=== PATIENT | female | born 1980 ===

== ENCOUNTER 2017-04-19 19:51 | Emergency (ER) | payer OTHER ==
[2017-04-19 20:33] VITALS: RESP 18
[2017-04-19] MEDS ORDERED: Sodium Chloride 0.9% 1,000 ML IV ONE (21:25)
[2017-04-19 21:26] LABS: RBC URINE 9 /hpf (0-3); URINE BACTERIA RARE (<OCC); URINE BILIRUBIN NEGATIVE (NEGATIVE); URINE BLOOD 2+ (NEGATIVE); URINE COLOR Yellow (YELLOW); URINE GLUCOSE (UA) NORMAL (Normal); URINE KETONE NEGATIVE (NEGATIVE); URINE LEUKOCYTE ESTERASE NEG Leu/uL (Negative); URINE PROTEIN NEGATIVE (NEGATIVE); URINE UROBILINOGEN NORMAL mg/dL (0.2-1.0); WBC URINE < 1 /hpf (0-5)
[2017-04-19 21:40] LABS: EOS # 0.1 K/uL (0.0-0.7); LYMPH # 2.4 K/uL (1.0-4.3); MONO # 0.7 K/uL (0.0-0.8)
[2017-04-19 21:49] LABS: CHLORIDE 103 mmol/L (98-107); POTASSIUM 3.3 mmol/L (3.6-5.2); SODIUM 136 mmol/L (132-148)
[2017-04-19 21:51] LABS: BILIRUBIN,TOTAL 0.4 mg/dL (0.2-1.3); CARBON DIOXIDE 21 mmol/L (22-30); GFR AFRICAN-AMERICAN > 60
[2017-04-19 21:52] LABS: ALB/GLOB RATIO 1.2 (1.0-2.1); ALKALINE PHOSPHATASE 64 U/L (38-126); ALT/SGPT 30 U/L (9-52); AST/SGOT 29 U/L (14-36); BASO % 0.5 % (0.0-2.0); BLOOD UREA NITROGEN 10 mg/dL (7-17); CALCIUM 8.8 mg/dl (8.6-10.4); EOS % 1.9 % (0.0-4.0); GLUCOSE,RANDOM 79 mg/dL (65-105); LYMPH % 30.5 % (20.0-40.0); MEAN CORPUSCULAR HEMOGLOBIN 17.7 pg (27.0-31.0); MONO % 8.4 % (0.0-10.0); NRBC % 0.1 % (0.0-2.0); RED CELL DISTRIBUTION WIDTH 19.2 % (11.5-14.5); TOTAL PROTEIN 7.8 g/dL (6.3-8.3); WHITE BLOOD COUNT 7.9 K/uL (4.8-10.8)
[2017-04-19 21:53] LABS: MEAN CELL VOLUME 59.2 fL (81.0-99.0)
--- NOTE | 2017-04-19 23:22 | C.PDOC ---
Time Seen by Provider: 04/19/17 21:08 Chief Complaint (Nursing): Female Genitourinary History Per: Patient Onset/Duration Of Symptoms: Hrs (today) Current Symptoms Are (Timing): Still Present Severity: Mild Location Of Pain/Discomfort: Suprapubic Quality Of Discomfort: Unable To Describe, "Pain" Exacerbating Factors: None Alleviating Factors: None Additional History Per: Prior Records Abnormal Vaginal Bleeding: Yes Past Medical History Reviewed: Historical Data, Nursing Documentation, Vital Signs Vital Signs: Last Vital Signs Temp 98.5 F 04/19/17 20:30 Pulse 69 04/19/17 20:30 Resp 18 04/19/17 20:30 BP 146/87 04/19/17 20:30 Pulse Ox 100 04/19/17 20:30 - Medical History PMH: No Chronic Diseases Surgical History: Family History: States: Unknown Family Hx - Social History Hx Tobacco Use: No Hx Alcohol Use: No Hx Substance Use: No - Immunization History Hx Tetanus Toxoid Vaccination: No Hx Influenza Vaccination: No Hx Pneumococcal Vaccination: No Review Of Systems Except As Marked, All Systems Reviewed And Found Negative. Constitutional: Negative for: Fever, Weakness Cardiovascular: Negative for: Chest Pain, Light Headedness Respiratory: Negative for: Shortness of Breath Gastrointestinal: Negative for: Vomiting Genitourinary: Positive for: Vaginal Bleeding (spotting), Pelvic Pain. Negative for: Dysuria Musculoskeletal: Negative for: Neck Pain, Back Pain Skin: Negative for: Rash Neurological: Negative for: Weakness, Numbness Physical Exam - Physical Exam Appears: Non-toxic, No Acute Distress Skin: Warm, Dry Head: Atraumatic, Normacephalic Eye(s): bilateral: PERRL, EOMI Neck: Normal ROM, Supple Cardiovascular: Rhythm Regular Respiratory: Normal Breath Sounds, No Accessory Muscle Use Gastrointestinal/Abdominal: Soft, Tenderness (mild suprapubic), No Guarding, No Rebound Back: No CVA Tenderness Extremity: Normal ROM Neurological/Psych: Oriented x3, Normal Motor, Normal Sensation ED Course And Treatment - Laboratory Results Result Diagrams: 04/19/17 21:34 04/19/17 21:34 Lab Interpretation: Abnormal Interpretation Of Abnormal: Anemia Urine POC: Positive O2 Sat by Pulse Oximetry: 100 Pulse Ox Interpretation: Normal - CT Scan/US Pelvic US Other Rad Studies (CT/US): Read By Radiologist, Radiology Report Reviewed CT/US Interpretation: Single IUP with cardiac activity and approximatly 7 weeks 3 days. Reassessment Condition: Improved Disposition Counseled Patient/Family Regarding: Studies Performed, Diagnosis, Need For Followup, Rx Given - Disposition Disposition: HOME/ ROUTINE Disposition Time: 23:23 Condition: IMPROVED Additional Instructions: Follow up with your City Planning Aide doctor for further evaluation and treatment. Return to the ER if you develop dizziness, heavy bleeding, worsening of symptoms or if you have any other concerns. Prescriptions: Pnv with Ca,No.72/Iron,Carb/FA [ Plus Iron Tablet] 1 each PO DAILY #90 tablet Instructions: Threatened Miscarriage (ED), Anemia (ED) Forms: [employer] (Welsh) Print Language: OCCITAN - Clinical Impression Clinical Impression: Anemia, Threatened in first trimester
[2017-04-20 00:41] VITALS: BP 123/74; PULSE 75; TEMP 98.3; O2SAT 99
--- NOTE | 2017-04-20 13:07 | US ---
PROCEDURE: OB Pelvic Ultrasound HISTORY: pain/bleeding, r/o ectopic. Pelvic pain/vaginal spotting COMPARISON: None available. FINDINGS: UTERUS: Gestational sac: Single intrauterine gestation. Heart rate: 146 bpm. age (Ultrasound estimated): 7 weeks 4 days +/- 0 weeks 4 days Qi-gestational hemorrhage: None. Date of delivery (Ultrasound estimated) : 12/02/2017 Uterus measures 13.6 x 6 x 6.5 cm. Normal in size and appearance. CERVIX: Long and closed. No cervical abnormality seen. RIGHT OVARY: Measures 3.2 x 1.7 x 2.5 cm. No mass lesion. Normal flow. LEFT OVARY: Measures 3.6 x 3.9 x 2.9 cm. No solid mass. Normal flow. FREE FLUID: None. OTHER FINDINGS: None. IMPRESSION: Intrauterine viable with cardiac activity. Estimated gestational age by ultrasound is 7 weeks 4 days. Estimated date of delivery by ultrasound is 12/02/2017. Preliminary report was submitted by virtual Radiology
== END 2017-04-20 00:37 | disposition home or self-care (01) ==
LOC: C.ER 19:51
DX: O20.0 Threatened abortion (principal); O99.011 Anemia complicating pregnancy, first trimester; Z3A.01 Less than 8 weeks gestation of pregnancy
CPT/HCPCS: 76801; 80053; 81001; 84702; 84703; 85025; 86850; 86900; 96360; 99284; J2792; J7040

== ENCOUNTER 2017-09-07 19:21 | Emergency (ER) | payer OTHER ==
[2017-09-07 19:51] VITALS: BMI 28.4
[2017-09-07] MEDS ORDERED: Dextrose 5%/Lactated Ringer's 1,000 ML IV SCH (20:15)
[2017-09-07 20:39] LABS: SPERM URINE RARE /hpf; SQUAMOUS EPITHIAL 7 /hpf (0-5); URINE BACTERIA RARE (<OCC); URINE BILIRUBIN NEGATIVE (NEGATIVE); URINE BLOOD NEGATIVE (NEGATIVE); URINE CLARITY Hazy (Clear); URINE COLOR Yellow (YELLOW); URINE GLUCOSE (UA) NORMAL (Normal); URINE LEUKOCYTE ESTERASE NEG Leu/uL (Negative); URINE NITRATE NEGATIVE (NEGATIVE); URINE PROTEIN 1+ mg/dL (NEGATIVE)
[2017-09-07 20:51] VITALS: TEMP 99
--- NOTE | 2017-09-07 23:28 | OBHP ---
Datetime: 09/07/2017 19:48 IP Adm Impression: , intrauterine ; No Active Labor IP Chief Complaint Other: Pain on urination IP Admit Plan: Observation/Evaluation; Discharge home Admit Comment, IP Provider: 37 y.o , LMP 02/26/17, STEPHANIE 12/03/17, EGA 27w 4d c/o burning on urin ation x 1 day (onset 09/06/17); (+) urinary frequency, approx every 30 min to 1 hr. Denies odor to uri ne. Last had sexual intercourse 09/03/17. (+) AFM; denies LOF. VB. Also c/o MAXWELL and occasional dizzine ss - onset also 09/06/17. Drinks 2 bottles of water a day. Works with a [employer], five days a w [employer]. Reports today, has not eaten since 1300 hours. care: [facility] - last visit 08/27; next vi sit 09/24. Noted for AMA, prev C/S, anemia P Ob: 2008, C/S, female, 9 1/2 lbs, Breech, [facility]. No complications. 2008, Spont Ab, with D_C; no complications. 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 Denies STIs, abnormal Pap, fibroids or ovarian cysts PMH: denies PSH: D_C; C/S; abdominoplasty NKDA Meds: PNV, iron - each, once a day Soc Hx: denies tobacco, illicit drug or EtOH use. With FOB x 1 year; lives with him and her daught er. Fam Hx: Mother alive 56 y.o. Father alive 59 y.o. - both, no med issues P.E.: as above. WD in NAD. Awake, alert, oriented to time, person and place. Pleasant and cooperat diomedes. Assessment: 37 y.o. P1011, 27w 4d, dysuria and urinary frequency - R/O UTI. FHR appropriate for g estational age. Clinically stable. Plan: 1) IVFs 2) U/A 3) Tylenol 650 mg p.o. x 1 4) Observe Addendum: 2044 hours - patient fell asleep; easily awakened. No headache - U/A: leuk esterase neg Assessment: Uterine irritabilty and frequency may be due to recent sexual activity. Patient advise d to increase p.o. intake of water; and to eat more frequently; small portions. Clinically stable. Plan: 1) discharge home 2) keep scheduled appointments Pelvic Type - PN: Adequate Extremities - PN: Normal Abdomen - PN: Normal Back - PN: Normal Breast - PN: Not Done Lungs - PN: Normal Heart - PN: Normal Thyroid - PN: Not Done Neurologic - PN: Normal HEENT - PN: Normal General - PN: Normal FHR - Baseline A Provider: 135 Contraction Comments Provider: irritability Comments, ACOG Physical Exam: Abdomen: Gravid. Soft. Non tender in all quadrants. Healed Abdominopla sty scar All other systems reviewed and are negative Gestation - Est Wks by US: 27w 4d EGA AdmitDate IP: 27.4 IP Chief Complaint: Other NICHD Variability Prov Fetus A: Moderate 6-25bpm NICHD Decel Fetus A IP Provider: None Dilatation, Provider: 0 Effacement, Provider: 0 Station, Provider: high Genitourinary Exam: Normal DTRs - PN: Not Done
[2017-09-08 01:51] VITALS: BP 146/83; PULSE 67; RESP 20; O2SAT 95
== END 2017-09-07 21:50 | disposition home or self-care (01) ==
LOC: C.EROB 19:21
DX: O26.92 Pregnancy related conditions, unspecified, second trimester (principal); R30.0 Dysuria; Z3A.27 27 weeks gestation of pregnancy
CPT/HCPCS: 81001; 99283; J7120

== ENCOUNTER 2017-11-07 12:18 | Emergency (ER) | payer OTHER ==
[2017-11-07 13:13] VITALS: BMI 30.7
--- NOTE | 2017-11-07 14:58 | OBHP ---
Datetime: 11/07/2017 14:48 IP Adm Impression: Term, intrauterine ; , intrauterine IP Admit Plan: Discharge home Admit Comment, IP Provider: 37 y.o , LMP 02/26/17, STEPHANIE 12/03/17, EGA @ 36.2 wks GA arrived wth an Rx from clinic dated 10/29 for nst/bpp. pt states she is unsure why she was sent, dnei any lof, vb, ctx, + normal movements. Pt landen any hx of htn or diabtes. Clinic wsa then called to see fo r indication, and as per resdient Dr Patel said for advanced maternal age. P Ob: 2009, C/S, female, 9 1/2 lbs, Breech, [facility]. No complications. 2008, Spont Ab, with D_C; no complications. 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 Denies STIs, abnormal Pap, fibroids or ovarian cysts PMH: denies PSH: D_C; C/S; abdominoplasty NKDA Meds: PNV, iron - each, once a day Soc Hx: denies tobacco, illicit drug or EtOH use. With FOB x 1 year; lives with him and her daught er. Fam Hx: Mother alive 56 y.o. Father alive 59 y.o. - both, no med issues 37y/o P1 @ 36.2 wks GA with matneral reaussring and well being -nst reactive, bpp apperas 03/12 -dc home -has follo wup on Saturday 11/11 -labor precuations given - kick counts Pelvic Type - PN: Adequate Extremities - PN: Normal Abdomen - PN: Normal Back - PN: Normal Breast - PN: Normal Lungs - PN: Normal Heart - PN: Normal Thyroid - PN: Not Done Neurologic - PN: Normal HEENT - PN: Normal General - PN: Normal Presentation-Admit: Vertex FHR - Baseline A Provider: 120 Membranes, Provider: Intact Contraction Comments Provider: irritalbty Gestation - Est Wks by US: 36.2 EGA AdmitDate IP: 36.2 Vital Signs Provider: Reviewed IP Chief Complaint: Other NICHD Variability Prov Fetus A: Moderate 6-25bpm NICHD Accel Fetus A IP Provider: [id number] FHR Category Provider Fetus A: Category I NICHD Decel Fetus A IP Provider: None Genitourinary Exam: Normal DTRs - PN: Normal
--- NOTE | 2017-11-07 15:16 | US ---
PROCEDURE: OB Pelvic Ultrasound HISTORY: Advanced maternal age LMP: 02/26/2015 COMPARISON: Obstetric ultrasound 04/19/2017 FINDINGS: UTERUS: A single viable intrauterine gestation is identified in cephalic lie with average ultrasonic age of 35 weeks 5 days an cardiac activity of 131 beats per minute. This represents normal interval growth compared prior obstetric ultrasound 04/19/2017 when the gestational is 7 weeks 4 days average ultrasound age. There is no evidence to suggest placental abruption or previa with a well-developed anterior fundal placenta identified. The following mean biometry was obtained: BPD 8.8 cm corresponds to 35 weeks 4 days. HC 31.6 cm correspond to 35 weeks 4 days. AC 31.8 cm corresponds to 35 weeks 5 days. FL 7.0 cm corresponds to 35 weeks 6 days. HC/AC ratio is 1.0 which falls within the normal range. Estimated date of delivery 12/07/2017. Estimated weight 2752 g standard deviation. anatomical survey is quite limited at this stage of gestation but no obvious hydrocephalus evident. There is no hydronephrosis appreciated in the urinary bladder is unremarkable. Left-sided stomach is appreciated 3 vessel umbilical cord is identified. Abdominal umbilical cord insertion is not clearly appreciated due to lie and the spine is not completely imaged for the same reason. No nuchal fold is submitted. Biophysical profile: breathing - 2. body movement - 2. tone - 2. Amniotic fluid - 2. Total biophysical profile score 8/8. CERVIX: Measures 3.8 cm. Long and closed. No cervical abnormality seen. RIGHT OVARY: Not identified. LEFT OVARY: Not identified. FREE FLUID: None. OTHER FINDINGS: None. IMPRESSION: A single viable intrauterine gestation is identified in cephalic lie with an average ultrasonic age of 35 weeks 5 days representing normal growth compared prior obstetric ultrasound exam dated 04/09/2017. Biophysical profile score 8/8. Limited anatomical survey. Please see discussion above.
[2017-11-07 19:12] VITALS: BP 128/78; PULSE 83
== END 2017-11-07 15:10 | disposition home or self-care (01) ==
LOC: C.EROB 12:18
DX: Z36.89 Encounter for other specified antenatal screening (principal)

== ENCOUNTER 2017-11-25 13:37 | Inpatient (IN) | payer MEDICAID, OTHER ==
[2017-11-25 14:37] LABS: BASO % 0.4 % (0.0-2.0); EOS # 0.3 K/uL (0.0-0.7); EOS % 3.4 % (0.0-4.0); LYMPH # 1.8 K/uL (1.0-4.3); LYMPH % 22.7 % (20.0-40.0); MEAN CORPUSCULAR HEMOGLOBIN 26.5 pg (27.0-31.0); MEAN CORPUSCULAR HGB CONC 33.4 g/dL (33.0-37.0); MEAN PLATELET VOLUME 10.7 fL (7.2-11.7); MONO # 0.6 K/uL (0.0-0.8); MONO % 8.1 % (0.0-10.0); NEUT # 5.2 K/uL (1.8-7.0); NEUT % 65.4 % (50.0-75.0); NRBC % 0.1 % (0.0-2.0); RBC 4.38 Mil/uL (3.80-5.20); RED CELL DISTRIBUTION WIDTH 14.2 % (11.5-14.5)
[2017-11-25 14:39] LABS: HEMOGLOBIN 11.6 g/dL (11.0-16.0)
[2017-11-25 14:40] LABS: MEAN CELL VOLUME 79.2 fL (81.0-99.0)
[2017-11-25 14:42] LABS: SQUAMOUS EPITHIAL 12 /hpf (0-5); URINE BACTERIA RARE (<OCC); URINE BILIRUBIN NEGATIVE (NEGATIVE); URINE BLOOD NEGATIVE (NEGATIVE); URINE CLARITY Hazy (Clear); URINE COLOR Straw (YELLOW); URINE GLUCOSE (UA) NORMAL (Normal); URINE LEUKOCYTE ESTERASE NEG Leu/uL (Negative); URINE PROTEIN NEGATIVE (NEGATIVE); URINE UROBILINOGEN NORMAL mg/dL (0.2-1.0)
[2017-11-25 14:47] LABS: ALB/GLOB RATIO 0.9 (1.0-2.1); ALBUMIN 3.7 g/dL (3.5-5.0); ALT/SGPT 19 U/L (9-52); AST/SGOT 38 U/L (14-36); BLOOD UREA NITROGEN 13 mg/dL (7-17); CALCIUM 9.1 mg/dl (8.6-10.4); GFR AFRICAN-AMERICAN > 60; GFR NON-AFRICAN AMERICAN > 60; URIC ACID 4.8 mg/dL (2.2-7.5)
[2017-11-25 14:56] LABS: PROTHROMBIN TIME 11.1 SECONDS (9.7-12.2)
[2017-11-25] MEDS ORDERED: Sodium Citrate/Citric Acid 15 ml Sol PO ONE (15:52)
[2017-11-25] MEDS ORDERED: cefOXitin IV 2 gm in Saline 2 GM in Sodium Chloride 0.9% 50 ML IV STA (15:53)
[2017-11-25] MEDS ORDERED: Sodium Citrate/Citric Acid 15 ml Sol ONE (16:10)
[2017-11-25] MEDS ORDERED: Oxytocin 20 units in LR 2,000 ML IV ONE (16:30)
--- NOTE | 2017-11-25 17:07 | OBADHP ---
Datetime: 11/25/2017 17:00 Admit Comment, IP Provider: 37 y.o , LMP 02/26/17, STEPHANIE 12/03/17, EGA @ 38.6 wks sent from clini c wt elevated bp with itnermitten headahce, now resolved with ranging bp us to 142/90, 153/90. dneis ctx, lof, vb, ctx, +FM, dneis headcahes, blurryvision, ruq/epigaitr pain P Ob: 2008, C/S, female, 9 1/2 lbs, Breech, [facility]. No complications. 2008, Spont Ab, with D_C; no complications. 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 Denies STIs, abnormal Pap, fibroids or ovarian cysts PMH: denies PSH: D_C; C/S; abdominoplasty NKDA Meds: PNV, iron - each, once a day Soc Hx: denies tobacco, illicit drug or EtOH use. With FOB x 1 year; lives with him and her daught er. Fam Hx: Mother alive 56 y.o. Father alive 59 y.o. - both, no med issues 37y/o P1 @ 38.6 wks with previous cesearean esction and eleated blood prussre with preeclampsia wi th mild features -admit to L+D -npo, ivf -admissin labs -cont toco adn efm -analegia -preop labs -or anethies aware -bp moniroign -cont kleber oand emf pt counlsedon prepeat cxs r/b/a/i , consent obtained Pelvic Type - PN: Adequate Extremities - PN: Normal Abdomen - PN: Normal Back - PN: Normal Lungs - PN: Normal Heart - PN: Normal Thyroid - PN: Normal Neurologic - PN: Not Done HEENT - PN: Normal General - PN: Normal Presentation-Admit: Vertex FHR - Baseline A Provider: 125 Membranes, Provider: Intact Gestation - Est Wks by US: 38.6 Vital Signs Provider: Reviewed IP Chief Complaint: Other NICHD Variability Prov Fetus A: Moderate 6-25bpm FHR Category Provider Fetus A: Category I NICHD Decel Fetus A IP Provider: None Dilatation, Provider: 0 Genitourinary Exam: Normal DTRs - PN: Normal EGA AdmitDate IP: 38.6 IP Adm Impression: Term, intrauterine IP Admit Plan: Admit to unit; Initiate Section protocol Datetime: 11/07/2017 14:48 Breast - PN: Normal Contraction Comments Provider: irritalbty NICHD Accel Fetus A IP Provider: [id number] Datetime: 09/07/2017 19:48 IP Chief Complaint Other: Pain on urination Comments, ACOG Physical Exam: Abdomen: Gravid. Soft. Non tender in all quadrants. Healed Abdominopla sty scar All other systems reviewed and are negative Effacement, Provider: 0 Station, Provider: [facility]
[2017-11-25] MEDS ORDERED: Morphine 1 mg/ml preservative-free Inj(Duramorph) ONE (17:08)
--- NOTE | 2017-11-25 20:58 | PCM.SURG1 ---
Surgeon's Initial Post Op Note - Surgeon's Notes Surgeon: Mariaelena Purcell MD Manager Risk: Easton Mckinney MD Type of Anesthesia: Spinal Pre-Operative Diagnosis: Term intracutienr , previous cesearean section mild preeclampsia Operative Findings: live female infnat agpar 9,9 weigh of 8lbs. pediatricin prsent fo devery, nromal uteurs, tubes and ovariens bilaterally. wil adhesions noted. Dr Easton Mckinney was surgicla assistn and prseetn for entire case adn essential in gaining etnry, retraction, epxousre, hodling bladder blade , heping to deilvery ifnant, clsiong all layers Post-Operative Diagnosis: same as above Operation Performed: Repeat Low transvesre Cesearen section Specimen/Specimens Removed: placenta Estimated Blood Loss: EBL {In ML}: 800 Blood Products Given: N/A Drains Used: No Drains Post-Op Condition: Good Date of Surgery/Procedure: 11/25/17 Time of Surgery/Procedure: 17:00
--- NOTE | 2017-11-25 21:12 | OBDS ---
DELIVERY PERSONNEL Delivery Doctor: Shelby Purcell MD Scrub Nurse: Lesa Frost RN Wild Life Photographer: Robinson Arellano RN Anesthesiologist: kofi Resident: DR BACON MATERNAL INFORMATION Delivery Anesthesia: Spinal Estimated Blood Loss (ml): 800 Placenta Cultured: No Maternal Complications: Other Other Maternal Complications: PREVIOUS C/S RN Comments: HX OF KYLIE COOPER 2014 AND C/ S 2009, ELEVATED B/P'S, AMA, +RPR 1:1 , H/O ANEMIA HGB 7. 8 (04/24/17) THEN HGB 12.0 (06/29/17). BLOOD TYPE A NEG, ANTI D -RH NEG (ANTI D ANTIBODIES) Provider Comments: live ifnat agpar 9,9 horseback excavator rpsent for delivery, adhesins ebl 800 ml. live femlas weigh of 8lbs LABOR SUMMARY EDC: 12/03/2017 00:00 No. Babies in Womb: 1 Attempted: No Labor Anesthesia: None LABOR INFORMATION Reason for Induction: Not Applicable Oxytocin: N/A Group B Beta Strep: Positive Antibiotics # of Doses: 1 Steroids Given: None Reason Steroids Not Administered: Not Applicable MEMBRANES Membranes Rupture Method: Artificial Rupture of Membranes: 11/25/2017 17:33 Length of Rupture (hrs): 0.02 Amniotic Fluid Color: Clear Amniotic Fluid Amount: Moderate Amniotic Fluid Odor: Normal STAGES OF LABOR Stage 3 hrs: 0 Stage 3 min: 1 CSECTION DELIVERY Primary Indication: Repeat Elective Secondary Indication: elevated b/p CSection Urgency: Elective CSection Incidence: Repeat Labor: N/A Elective: Elective CSection Incision: Lower Uterine Transverse BABY A INFORMATION Delivery Date/Time: 11/25/2017 17:34 Method of Delivery: Born in Route : No : N/A Forceps: N/A Vacuum Extraction: N/A Shoulder Dystocia : No SHOULDER DYSTOCIA BABY A Delivery Date/Time: 11/25/2017 17:34 PRESENTATION/POSITION BABY A Presentation: Cephalic Breech Presentation: N/A PLACENTA INFORMATION BABY A Placenta Delivery Time : 11/25/2017 17:35 Placenta Method of Delivery: Manual Removal Placenta Status: Delivered SCORES BABY A Heart Rate 1 min: >100 bpm Resp Effort 1 min: Good Cry Reflex Irritability 1 min: Cough or Sneeze or Pulls Away Muscle Tone 1 min: Active Motion Color 1 min: Body Vesta, Extremities Blue Resuscitation Effort 1 min: Tactile Stimulation SCORE 1 MIN: 9 Heart Rate 5 min: >100 bpm Resp Effort 5 min: Good Cry Reflex Irritability 5 min: Cough or Sneeze or Pulls Away Muscle Tone 5 min: Active Motion Color 5 min: Body Vesta, Extremities Blue Resuscitation Effort 5 min: N/A SCORE 5 MIN: 9 INFANT INFORMATION BABY A Gestational Age at Delivery: 38.6 Gestational Status: Term Outcome : Liveborn Infant Condition : Stable Infant Sex: Female IDENTIFICATION/MEDS BABY A ID Band Number: [id number] ID Band Location: Left Leg; Left Arm Sensor Applied: Yes Sensor Number: [id number] Sensor Location : Cord Clamp WEIGHT/LENGTH BABY A Birthweight (gms): 3630 Weight (lb): 8 Infant Weight (oz): 0 Length Inches: 20.00 Length cms: 50.8 CORD INFORMATION BABY A No. Cord Vessels: 3 Nuchal Cord : N/A Infant Cord pH Baby Venous: 7.35 Cord Blood Taken: Yes Infant Suction: Mouth; Nose
[2017-11-26 08:08] LABS: BASO % 0.3 % (0.0-2.0); EOS # 0.2 K/uL (0.0-0.7); EOS % 1.6 % (0.0-4.0); HEMOGLOBIN 10.6 g/dL (11.0-16.0); LYMPH # 1.2 K/uL (1.0-4.3); LYMPH % 11.6 % (20.0-40.0); MEAN CORPUSCULAR HEMOGLOBIN 26.7 pg (27.0-31.0); MEAN CORPUSCULAR HGB CONC 33.9 g/dL (33.0-37.0); MEAN PLATELET VOLUME 10.7 fL (7.2-11.7); MONO # 0.7 K/uL (0.0-0.8); MONO % 6.8 % (0.0-10.0); NEUT # 8.1 K/uL (1.8-7.0); NEUT % 79.7 % (50.0-75.0); RBC 3.95 Mil/uL (3.80-5.20); WHITE BLOOD COUNT 10.2 K/uL (4.8-10.8)
--- NOTE | 2017-11-26 10:37 | OP ---
PROCEDURE DATE: 11/25/2017 SURGEON: Mariaelena Purcell MD CONSTRUCTION CHECKER: Easton Mckinney MD TYPE OF ANESTHESIA: Spinal. PREOPERATIVE DIAGNOSES: Term intrauterine , previous section, . OPERATIVE FINDINGS: Live female infant, Apgars 9 and 9, weight of 8 pounds. Air Moving Technician present for delivery. Normal uterus, tubes and ovaries bilaterally. Dense adhesions are noted. Dr. Easton Mckinney, the career services assistant was present for the entire case, essentially gaining entry, retraction, exposure, holding the bladder blade, helping to deliver the infant, closing all layers. POSTOPERATIVE DIAGNOSES: Term intrauterine , previous section, . OPERATION PERFORMED: Repeat low transverse section. SPECIMENS REMOVED: Placenta. ESTIMATED BLOOD LOSS: 800 mL. BLOOD PRODUCTS: None. COMPLICATIONS: None. DESCRIPTION OF PROCEDURE: The patient was taken to the operating room where she was given spinal anesthesia. Once found to be adequate, she was then positioned on the operating table in dorsal supine position. The patient was then prepped and draped in the usual sterile fashion. A time-out confirmed correct patient and correct procedure. Following this, a Pfannenstiel skin incision was made superior to the prior abdominoplasty incision. The incision was extended laterally with the scalpel. The subcutaneous layers were then cauterized with the Bovie. The fascia was then incised in the midline with scalpel, the incision was extended laterally with a Bovie. The inferior aspect of the fascial incision was grasped with Allis and Symone clamps and the underlying rectus muscles dissected off bluntly. Attention was then turned to the superior aspect in a similar fashion, which was grasped with Allis and Symone clamps and the underlying rectus muscles were dissected off bluntly. The rectus muscle was then bluntly in the midline. The peritoneum was identified in clear space, tented up with 2 Mary clamps, entered in a clear space with Metzenbaum scissors, and extended laterally and superiorly with good visualization. The lower end of the Poly was then reinserted. The vesicouterine peritoneum was incised with Metzenbaum scissors. The incision was extended laterally. A bladder flap was created digitally. The lower uterine segment was incised in a transverse fashion. The uterine incision was then made and the baby was noted to be in an oblique presentation. The head was then brought to the uterine incision. Infant's head was delivered atraumatically. Loose nuchal cord was reduced, followed by atraumatically delivering the shoulder, followed by delivery of the body. Both oral and nasal passages of the baby were bulb suctioned. Umbilical cord was clamped and cut. Baby was handed off to the awaiting incendiary powder mixer. Cord blood and cord gases were collected and sent x2. The placenta was then delivered manually. The uterus was exteriorized, cleared of clots and debris. The uterine incision was repaired with 0 Vicryl in a running continuous locked fashion. A second layer of the same suture was used to close the uterus in a running imbricated manner. There was good hemostasis at the uterine incision site. There were normal tubes and ovaries bilaterally. The uterus was returned to the abdomen. Paracolic gutters were cleared of all clots and debris. The peritoneum was reapproximated with 2-0 Chromic in running continuous fashion. The rectus was approximated with 2-0 Chromic in an interrupted manner. The fascia was reapproximated with 0 Vicryl in a running continuous fashion. Subcuticular layers were closed with 2-0 plain in an interrupted manner. The skin was reapproximated and closed with javier. At the end of the procedure, all needles, sponge, and instrument counts were noted to be correct x2. The patient tolerated the procedure well and was transferred to the recovery room in stable condition. Mariaelena Purcell MD
[2017-11-26 13:35] LABS: BASO % 0.3 % (0.0-2.0); EOS # 0.2 K/uL (0.0-0.7); EOS % 1.5 % (0.0-4.0); HEMOGLOBIN 11.2 g/dL (11.0-16.0); LYMPH # 1.3 K/uL (1.0-4.3); LYMPH % 12.6 % (20.0-40.0); MEAN CELL VOLUME 79.2 fL (81.0-99.0); MEAN CORPUSCULAR HEMOGLOBIN 26.4 pg (27.0-31.0); MEAN CORPUSCULAR HGB CONC 33.3 g/dL (33.0-37.0); MEAN PLATELET VOLUME 9.4 fL (7.2-11.7); MONO # 0.6 K/uL (0.0-0.8); MONO % 5.7 % (0.0-10.0); NEUT # 8.4 K/uL (1.8-7.0); NEUT % 79.9 % (50.0-75.0); RBC 4.22 Mil/uL (3.80-5.20); RED CELL DISTRIBUTION WIDTH 14.3 % (11.5-14.5); WHITE BLOOD COUNT 10.5 K/uL (4.8-10.8)
[2017-11-26 13:50] LABS: ALT/SGPT 19 U/L (9-52); AST/SGOT 33 U/L (14-36)
--- NOTE | 2017-11-27 08:31 | OBPPN ---
Datetime: 11/27/2017 08:27 PP Pain Prov: Within normal limits PP Nausea Prov: Denies PP Flatus Prov: Yes PP BM Prov: Yes PP Abdomen/Uterus Prov: Normal PP Lochia Prov: Normal PP Extremities Prov: Normal PP C/S Incision Prov: Normal PP Comments Phys Exam Prov: fudus below umblicus ext mile edema,no calf ten incision clean and dry PP Impression Prov: Normal progression PP Plan Prov: Continue present management PP Progress Note Prov: pt was seen at bed side, pain under control,no n/v toleratingdeit,voiding,min lochia, flatus+ pod#2 s/p c/s preeeclmopsia cont pain manag cont post op care cont bp monit enourage ambulation Vital Signs Provider PP: Reviewed; Within Normal Limits
[2017-11-27] MEDS ORDERED: Oxycodone/Acetaminophen 5/325 mg Tab PO PRN ×2 (09:32→09:34)
--- NOTE | 2017-11-27 10:23 | OBPPN ---
Datetime: 11/26/2017 11:54 PP Pain Prov: Within normal limits PP Nausea Prov: Denies PP Flatus Prov: Yes PP BM Prov: Yes PP Breasts Prov: Normal PP Heart Prov: Normal PP Lungs Prov: Normal PP Abdomen/Uterus Prov: Normal PP Lochia Prov: Normal PP Vulva/Perineum Prov: Normal PP Extremities Prov: Normal PP C/S Incision Prov: Normal PP Comments Phys Exam Prov: Denies MAXWELL, blurry vision, or chest pain. PP Impression Prov: Normal progression PP Plan Prov: Continue present management PP Progress Note Prov: S/P Repeat C/S for pre-eclampsia. 1) Pre-eclampsia: AST, PLTs pending. BP stable: 125/75. pt asymptomatic. 2) Pain: controlled with PO pain meds 3) Breast feeding 4) Encouraged ambulation 5) Rhogam: RH(-) Needs Rhogam IP PP Procedures: Rhogam Vital Signs Provider PP: Reviewed; Within Normal Limits Vital Signs Provider Details PP: ASTL: 38. todays labs pending BP stable: 127/75
[2017-11-28 08:37] VITALS: BP 122/85; PULSE 70; RESP 18; TEMP 97.5; O2SAT 100
--- NOTE | 2017-11-28 15:36 | OBDCSUM ---
Datetime: 11/28/2017 09:15 Discharged to, Provider: Home Follow up at, Provider: [facility] Disch Instr Activity: Normal activity Disch Instr Diet: Regular Discharge Instructions, Provider: Routine instructions given Discharge Diagnosis, Provider: Term Delivered Discharge Time: 11/28/2017 10:00 Follow up in weeks, Provider: 12/02/17 Disch Referrals: None Contraception discussed, Prov: Yes Disch Activity Restrictions: No exercising; No lifting; No sexual activity; Nothing in vagina - Inte rcourse, tampons, douche Discharge Diagnosis Prov Other: Previous section Status post section Advanced maternal age Gestational HTN Contraception after Delivery: Undecided
== END 2017-11-28 14:53 | disposition home or self-care (01) | DRG 765 ==
LOC: C.EROB 13:37 → C.4D 15:53 → C.4M 21:30
PROVIDERS: ADMIT Obstetrics & Gynecology; ATTEND Obstetrics & Gynecology
PROC: 10D00Z1 Extraction of Products of Conception, Low, Open Approach (ICD-10-PCS; principal; 2017-11-25)
DX: O34.211 Maternal care for low transverse scar from previous cesarean delivery (principal); O13.3 Gestational [pregnancy-induced] hypertension without significant proteinuria, third trimester; Z3A.38 38 weeks gestation of pregnancy; O99.824 Streptococcus B carrier state complicating childbirth; Z37.0 Single live birth

== ENCOUNTER 2018-02-21 11:01 | Emergency (ER) | payer MEDICAID, OTHER ==
[2018-02-21 11:02] VITALS: BMI 30.7
[2018-02-21 11:07] VITALS: BP 123/81; PULSE 76; RESP 19; TEMP 98; O2SAT 99
[2018-02-21] MEDS ORDERED: Amoxicillin-Clav 875-125 mg Tab PO STA (11:27)
--- NOTE | 2018-02-21 11:29 | C.PDOC ---
History Of Present Illness 37 yo female, 4 months post-, currently breast-feeding, come in for evaluation of Right breast pain, redness, swelling gradually developed for past few days. Otherwise, pt denies fever, chills, skin changes, denies any other active complaints. Ambulate to Ed for evaluation, not in any apparent distress. Time Seen by Provider: 02/21/18 11:15 Chief Complaint (Nursing): Breast Problem History Per: Patient Past Medical History Reviewed: Historical Data, Nursing Documentation, Vital Signs Vital Signs: Last Vital Signs Temp 98 F 02/21/18 11:03 Pulse 76 02/21/18 11:03 Resp 19 02/21/18 11:03 BP 123/81 02/21/18 11:03 Pulse Ox 99 02/21/18 11:29 - Medical History PMH: No Chronic Diseases Surgical History: - [facility] Procedures EXTRACTION OF POC, LOW CERVICAL, OPEN APPROACH (11/25/17) Family History: States: Unknown Family Hx - Social History Hx Tobacco Use: No Hx Alcohol Use: No Hx Substance Use: No - Immunization History Hx Tetanus Toxoid Vaccination: No Hx Influenza Vaccination: No Hx Pneumococcal Vaccination: No Review Of Systems Except As Marked, All Systems Reviewed And Found Negative. Constitutional: Negative for: Fever, Chills ENT: Negative for: Throat Pain Cardiovascular: Negative for: Chest Pain, Palpitations Respiratory: Positive for: Other (Right breast). Negative for: Cough, Shortness of Breath, Wheezing Gastrointestinal: Negative for: Nausea, Vomiting, Abdominal Pain Genitourinary: Negative for: Dysuria, Frequency Skin: Positive for: Lesions Neurological: Negative for: Headache, Dizziness Physical Exam - Physical Exam Appears: Well, Non-toxic, No Acute Distress Skin: Normal Color, Warm Head: Normacephalic Eye(s): bilateral: PERRL Nose: No Flaring, No Discharge Oral Mucosa: Moist Throat: No Erythema, No Exudate, No Drooling Neck: Trachea Midline, Supple Lymphatic: No Axilla Node Tenderness (B/L) Chest: Symmetrical, Other (Right breast: mild erythema with tenderness at 3 o' clock, mild induration. No nipple changes. Left breast: normal exam.) Cardiovascular: Rhythm Regular, No Friction Rub, No Murmur, No JVD Respiratory: No Decreased Breath Sounds, No Accessory Muscle Use, No Stridor, No Wheezing Gastrointestinal/Abdominal: Soft, No Tenderness, No Distention, No Guarding Extremity: Normal ROM, No Pedal Edema, No Swelling Neurological/Psych: Oriented x3, Normal Speech ED Course And Treatment O2 Sat by Pulse Oximetry: 99 Pulse Ox Interpretation: Normal Progress Note: On re-evaluation, pt is afebrile, hemodynamicaly stable. Non- toxic. ENT: no acute findings. Right breast: exam c/w mastitis. NO Right axillary lymphodenopathy, no nipple changes. Abd: benign, (-) guarding, (-) rebound. back: (-) CVA tenderness. Neurologicaly intact. Pt advised. ref. to f/u with PMD, [employer] in 2-3 days for re-evaluation. return to ED if any worsening or new changes Disposition - Disposition Disposition: HOME/ ROUTINE Disposition Time: 11:27 Condition: STABLE Additional Instructions: WARM COMPRESSES TO AREA TAKE MEDICATION PRESCRIBED FOLLOW UP WITH PMD, [employer] ATT[employer] IN 2-3 DAYS FOR RE-EVALUATION. RETURN TO ED IF ANY WORSENING OR NEW CHANGES. Prescriptions: Amoxicillin/Clavulanate [Augmentin 875 MG-125 MG] 1 tab PO BID #14 tab Instructions: Mastitis, Breast Care for the Breast Feeding Mother (ED) Forms: [employer] (Tanzanian) Print Language: KAZAKH - Clinical Impression Clinical Impression: Mastitis
[2018-02-21] MEDS ORDERED: Amoxicillin-Clav 875-125 mg Tab PO ONE (11:38)
== END 2018-02-21 11:48 | disposition home or self-care (01) ==
LOC: C.ER 11:01
DX: N61.0 Mastitis without abscess (principal)